=== PATIENT | female | born 1945 | race Caucasian/White ===

== ENCOUNTER 2025-08-14 20:56 | Emergency (ER) | payer MEDICARE, BC ==
[~2025-08-14] VITALS: Ht 165.1 cm; Wt 51.3 kg
[2025-08-14 20:56] VITALS: BP 131/79
[~2025-08-14 20:56] MED LIST: ASPI-605 PO; CALC-343 PO; CYAN250010 PO; LORA0.5T48 PO; OMEG300C3 PO; SULF1TAB47 PO; VALS80TA2 PO; VITA100C5 PO
[2025-08-14] MEDS ORDERED: LOSA25TA27 PO (21:18)
[2025-08-14 21:37] LABS: PLATELET COUNT (AUTO) 200 K/uL (179-408); RED BLOOD CELL COUNT(AUTO) 3.93 MIL/uL (3.63-4.92); RED CELL DISTRIBUTION WIDTH 14.2 % (12.3-17.7); WHITE BLOOD COUNT (AUTO) 7.5 K/uL (3.8-11.8)
[2025-08-14 21:45] LABS: CREATININE 0.8 mg/dL (0.6-1.3); SODIUM SERUM 135 mmol/L (136-145); UREA NITROGEN, BLOOD 18 mg/dL (7-18)
[2025-08-14 21:50] LABS: ASPARTATE AMINOTRANSFERASE 17 U/L (15-37); TOTAL PROTEIN, SERUM 6.3 g/dL (6.4-8.2)
[2025-08-14 22:01] LABS: BAND % (MANUAL) 3 % (0-10); EOSINOPHILS % (MANUAL) 1 % (0-8); LYMPHOCYTES % (MANUAL) 18 % (20-40); MONOCYTES % (MANUAL) 11 % (2-10); NEUTROPHILS % (MANUAL) 67 % (42-75); PLATELET ESTIMATE ADEQUATE
[2025-08-14 22:39] VITALS: BP 127/75; O2SAT 99
== END 2025-08-14 22:30 | disposition home or self-care (01) ==
LOC: ER 20:56
DX: R55 Syncope and collapse (principal); E78.5 Hyperlipidemia, unspecified; I11.9 Hypertensive heart disease without heart failure; Z88.7 Allergy status to serum and vaccine; Z90.11 Acquired absence of right breast and nipple; R06.2 Wheezing
CPT/HCPCS: 36415; 70030-TC; 84484; 85025; A4606; A4663